=== PATIENT | female | born 1990 | race Caucasian/White ===

== ENCOUNTER 2023-04-06 10:38 | Outpatient (CLI) | payer BC | END 2023-04-06 10:39 | disposition home or self-care (01) | LOC: CSHULT 10:38 | PROVIDERS: ATTEND Family Medicine | DX: R10.10 Upper abdominal pain, unspecified (principal) | CPT/HCPCS: 76700 ==

== ENCOUNTER 2023-05-18 11:57 | Inpatient (IN) | payer BC, OTHER ==
[2023-05-18 12:27] VITALS: BMI 25.1
[2023-05-18] MEDS ORDERED: hydrALAZINE 20 MG/ML VIAL SLOW IVP PRN ×2 (12:54→17:47)
[2023-05-18] MEDS ORDERED: Tranexamic Acid 1,000 MG/10 ML VIAL IVP PRN (17:47)
[2023-05-18] MEDS ORDERED: Acetaminophen 500 MG TAB PO PRN (17:47)
[2023-05-18] MEDS ORDERED: Carboprost 250 MCG/ML AMP IM PRN (17:47)
[2023-05-18] MEDS ORDERED: Misoprostol 200 MCG TAB PR PRN (17:47)
[2023-05-18] MEDS ORDERED: Promethazine HCl 25 MG/ML VIAL IM PRN (17:47)
[2023-05-18] MEDS ORDERED: Diphenoxylate HCl/Atropine Tablet PO PRN (17:47)
[2023-05-18] MEDS ORDERED: Methylergonovine 0.2 MG/ML VIAL IM PRN (17:47)
[2023-05-18] MEDS ORDERED: Ondansetron PF 4 MG/2 ML Vial IVP PRN (17:47)
[2023-05-18] MEDS ORDERED: Oxytocin 30 units/NS 500 ML 500 ML IV SCH (18:00)
[2023-05-18 18:49] LABS: Hematocrit 35.2 % (34.9-44.5); Hemoglobin 11.3 g/dL (12.0-15.5); Mean Corpuscular HGB CONC 32.1 g/dL (32.0-36.0); Mean Corpuscular Volume 93.4 fl (81.6-98.3); Mean Platelet Volume 10.6 fl (7.4-10.4); Platelet Count 212 10x3/uL (150-450); RBC Distribution Width 22.7 % (11.5-14.5); Red Blood Cell (RBC) Count 3.77 10x6/uL (3.90-5.03); White Blood Cell (WBC) Count 9.4 10x3/uL (3.5-10.5)
[2023-05-18 19:16] LABS: Hep B Surf Ag - L&D Non-Reactive S/CO (NonReactive); Syphilis Antibody Nonreactive (Nonreactive); Syphilis Antibody Index 0.08 S/CO (<1.00 Non-Reactive)
[2023-05-19] MEDS ORDERED: Bicitra 30 ML UDCUP PO PRN (07:35)
[2023-05-19] MEDS ORDERED: Famotidine/PF 20 mg/2ml Vial SLOW IVP PRN (07:35)
[2023-05-19] MEDS ORDERED: CEFAZOLIN 2 GM in Sodium Chloride 0.9% 100 ML IVPB SCH (07:45)
[2023-05-19] MEDS ORDERED: hydrOXYzine 25 MG TAB PO PRN (11:13)
[2023-05-19] MEDS: Lorazepam 0.5 MG TAB PO PRN (12:35)
[2023-05-19] MEDS ORDERED: diphenhydrAMINE 25 MG CAP PO PRN (13:53)
[2023-05-19] MEDS ORDERED: hydrALAZINE 20 MG/ML VIAL SLOW IVP PRN (13:53)
[2023-05-19] MEDS ORDERED: Bisacodyl 10 MG SUPP PR PRN (13:53)
[2023-05-19] MEDS ORDERED: Ondansetron PF 4 MG/2 ML Vial IVP PRN (13:53)
[2023-05-19] MEDS ORDERED: Oxytocin 30 units/NS 500 ML 500 ML IV SCH (13:53)
[2023-05-19] MEDS ORDERED: Simethicone Chewable 80 MG TAB PO PRN (13:53)
[2023-05-19] MEDS ORDERED: Promethazine HCl 25 MG/ML VIAL IM PRN (13:53)
[2023-05-19] MEDS ORDERED: Lanolin Ointment 7 GM TUBE TOP PRN (13:53)
[2023-05-19] MEDS: Oxytocin 10 UNITS/ML VIAL ONE (14:05)
[2023-05-19] MEDS: PHENYLEPHRINE-NS 100 MCG/ML 10 ML SYRINGE ONE (14:05)
[2023-05-19] MEDS: Morphine PF 10 MG/10 ML VIAL ONE (14:06)
[2023-05-19] MEDS: Midazolam HCl 2 mg/2 ml Vial ONE (14:06)
[2023-05-19] MEDS: ePHEDrine Sulfate 50 MG/10 ML VIAL ONE (14:06)
[2023-05-19] MEDS: fentaNYL 50 mcg/mL 1 mL Vial ONE (14:06)
[2023-05-19] MEDS: Ketorolac Tromethamine 30 MG (1 mL) VIAL IVP SCH (16:17)
[2023-05-19] MEDS: Ketorolac Tromethamine 30 MG (1 mL) VIAL IVP PRN (16:19)
[2023-05-19] MEDS: Ibuprofen 800 MG TAB PO SCH (18:52)
[2023-05-20] MEDS: Ferrous Sulfate 325 MG TAB PO SCH (02:51)
[2023-05-20] MEDS: Docusate 100 MG CAP PO SCH (02:51)
[2023-05-20 05:11] LABS: Hematocrit 30.3 % (34.9-44.5); Hemoglobin 9.4 g/dL (12.0-15.5); Mean Corpuscular Hemoglobin 29.8 pg (27.0-33.0); Mean Corpuscular Volume 96.2 fl (81.6-98.3); Mean Platelet Volume 10.6 fl (7.4-10.4); Platelet Count 161 10x3/uL (150-450); RBC Distribution Width 22.9 % (11.5-14.5); Red Blood Cell (RBC) Count 3.15 10x6/uL (3.90-5.03)
[2023-05-20] MEDS: Prenatal Vitamin 1 TAB PO SCH (08:17)
[2023-05-20] MEDS ORDERED: Ibuprofen 800 MG TAB PO SCH (11:15)
[2023-05-20] MEDS: Ibuprofen 800 MG TAB PO SCH (12:14)
[2023-05-20] MEDS: Polyethylene Glycol 3350 17 GM Packet PO SCH (12:22)
[2023-05-20] MEDS: HYDROcodone/Acetaminophen 5/325 mg Tablet PO PRN (17:20)
[2023-05-21] MEDS: Boostrix 0.5 ML (Tdap) VIAL (>/=7 yrs of age) IM ONE (07:26)
[2023-05-21] MEDS: Measles/Mumps/Rubella 10 MCG/0.5 ML VIAL SC ONE (07:29)
[2023-05-21] MEDS: Polyethylene Glycol 3350 17 GM Packet PO SCH (09:14)
[2023-05-21] MEDS: HYDROcodone/Acetaminophen 5/325 mg Tablet PO PRN (10:20)
[2023-05-21] MEDS: Acetaminophen 325 MG TAB PO PRN (12:04)
[2023-05-21] MEDS: Ibuprofen 800 MG TAB PO SCH (17:12)
[2023-05-21 19:19] VITALS: BP 116/73; TEMP 98.2
== END 2023-05-22 13:15 | disposition home or self-care (01) | DRG 787 ==
LOC: CSHLD/OP 11:57 → EDSTATUS 11:59 → CSHLD 17:49 → CSHPED 05-19 13:30
PROVIDERS: ADMIT Family Medicine; ATTEND Family Medicine
PROC: 10D00Z1 Extraction of Products of Conception, Low, Open Approach (ICD-10-PCS; principal; 2023-05-19)
DX: O99.02 Anemia complicating childbirth (principal); D62 Acute posthemorrhagic anemia; O76 Abnormality in fetal heart rate and rhythm complicating labor and delivery; Z3A.39 39 weeks gestation of pregnancy; Z37.0 Single live birth; K58.1 Irritable bowel syndrome with constipation; M25.511 Pain in right shoulder; D50.9 Iron deficiency anemia, unspecified; O99.344 Other mental disorders complicating childbirth; F41.9 Anxiety disorder, unspecified; O99.62 Diseases of the digestive system complicating childbirth; K21.9 Gastro-esophageal reflux disease without esophagitis
CPT/HCPCS: 36415; 51702; 76819; 85027; 86780; 86850; 86870; 86900; 86901; 87340; 93005; 93010; 99285; J1885; J2250; J2274; J2590; J3010